=== PATIENT | female | born 1985 | race Caucasian/White ===

== ENCOUNTER 2016-10-06 14:58 | Emergency (ER) | payer OTHER ==
[2016-10-06 15:09] VITALS: BP 111/70
--- NOTE | 2016-10-06 16:41 | ED HEADACHE COMPLAINT ---
History of Present Illness General Chief Complaint: Headache Stated Complaint: BIBA HEADACHE Source: patient, family Exam Limitations: no limitations Vital Signs & Intake/Output Vital Signs & Intake/Output Vital Signs Date Time Temp Pulse Resp B/P Pulse O2 O2 Flow FiO2 Ox Delivery Rate 10/06 1509 97.2 71 22 111/70 98 Room Air Allergies Coded Allergies: Penicillins (HIVES SOB 10/06/16) Triage Note: PER PT HAD RT ARM/SHOULDER SURGERY MONDAY, DOING WELL UNTIL THIS AM WOKE UP WITH A MIGRAINE 04/18 ASSOC WITH NAUSEA. TOOK ANTINAUSEA WITHOUT EFFECT. OXYCODONE FOR SHOULDER AND NO EFFECT ON HEAD. PT THINKS THAT IS THE PROBLEM. Triage Nurses Notes Reviewed? yes : No Patient currently breastfeeds: No HPI: 31-YEAR-OLD FEMALE WITH SEVERE FRONTAL headache that started this morning. She is 3 days status post right shoulder DSA with labral repair and had been doing well postoperatively. Taking Percocet intermittently without complications. She woke up feeling well and started having a headache shortly after. Gradual onset that became more severe, sharp shooting pain. Zosyn with nausea without vomiting. She took a Zofran which helped mildly with nausea. She took Percocet for the migraine headache that did not relief her symptoms initially. She presented here for further evaluation. Her headache is moderate at this time, is better than previously, she has mild nausea. She has no visual changes, no confusion. She also tried Excedrin Migraine without significant relief. She has no swelling the arm or shoulder, no redness, no fever no flulike illness no neck pain no visual changes. She has mild photophobia. She has history of migraine headaches however they're usually not this severe. Past History Travel History Traveled to [place] past 21 day No Medical History Any Pertinent Medical History? see below for history Neurological: NONE, migraine EENT: NONE Cardiovascular: NONE Respiratory: NONE Gastrointestinal: NONE Hepatic: NONE Renal: NONE Musculoskeletal: RIGHT SHOULDER LABRUM REPAIR Psychiatric: NONE Endocrine: NONE Surgical History Surgical History: RIGHT SHOULDER dsa, LABRAL REPAIR Psychosocial History What is your primary language Bulgarian Tobacco Use: Never used Family History Hx Contributory? No Review of Systems Review of Systems Constitutional: Reports: see HPI. Eyes: Reports: no symptoms. Ears, Nose, Throat, Mouth: Reports: no symptoms. Respiratory: Reports: no symptoms. Cardiovascular: Reports: no symptoms. Gastrointestinal/Abdominal: Reports: no symptoms. Genitourinary: Reports: no symptoms. Musculoskeletal: Reports: see HPI. Skin: Reports: no symptoms. Neurological/Psychological: Reports: no symptoms. Hematologic/Endocrine: Reports: no symptoms. Endocrine: Reports: no symptoms. Immunologic/Allergic: Reports: no symptoms. All Other Systems: Reviewed and Negative Physical Exam Physical Exam Cranial Nerves: normal hearing, normal speech, PERRL Comments: Well-developed well-nourished person in no acute distress HEENT: Normal EENT exam, extraocular motion intact, no nystagmus. Pupils equally round and reactive to light. Nose is atraumatic. External auditory canal and Tympanic membranes clear. Pharynx normal. No swelling or edema. Neck: Supple, no lymphadenopathy, normal range of motion without pain or tenderness Back: Nontender, no CVA tenderness. Full range of motion Cardiovascular: Regular rate and rhythms no murmurs, normal JVP Respiratory: Chest nontender. No respiratory distress. Breath sounds clear to auscultation bilaterally Abdomen: Soft, nontender nondistended, no appreciable organomegaly. Normal bowel sounds. No ascites Extremity: Right shoulder, dressings in place , no discharge, no erythema. Right upper extremity in sling. No edema, no calf tenderness to palpation, normal and equal pulses. Neuro: Alert oriented x3, motor sensory normal, cranial nerves II through XII grossly intact. Skin: No appreciable rash on exposed skin, skin is warm and dry. Psych: Mood and affect is normal, memory and judgment is normal. Core Measures Severe Sepsis Present: No Septic Shock Present: No Progress Differential Diagnosis: carotid dissection, cav sinus thromb, cluster RODNEY, encephalitis, IC mass/tumor, intracranial Hem., meningitis, migraine RODNEY, musculoskeletal pain, sinusitis, SSS thrombosis, subarach. Hem., tension RODNEY, temporal arteritis, TMJ syndrome, viral cephalgia Plan of Care: Orders Procedure Date/time Status Saline Lock 10/06 1639 Active Comments: Patient given 30 mg of Toradol IM liter fluid and 25 mg Phenergan IV. Patient reevaluated and her symptoms have completely resolved, she has no headache and no nausea. Likely this a migraine variant on by stress from her recent surgery. She is stable for discharge home, she will return with any worsening symptoms or further concerns Departure Departure Disposition: HOME OR SELF CARE Condition: Stable Clinical Impression Primary Impression: Migraine variant with headache Referrals: [facility] DO,JOSÉ (PCP/Family) Additional Instructions: Motrin and Advil or Aleve for pain. Tylenol as needed for pain. Drink plenty of water. Rest. Return with any concerns of worsening or severe headaches, vomiting or visual changes Departure Forms: Customer Survey General Discharge Information
== END 2016-10-06 18:22 ==
LOC: ERH 14:58
DX: G43.909 Migraine, unspecified, not intractable, without status migrainosus (principal)
CPT/HCPCS: 96374; 96375; J1885; J2550